=== PATIENT | female | born 1965 | race Caucasian/White ===

== ENCOUNTER 2023-11-14 08:16 | Day surgery (SDC) | payer BC ==
[~2023-11-14] VITALS: Ht 162.6 cm; Wt 86.2 kg
[2023-11-14 10:30] VITALS: O2SAT 100
[2023-11-14] MEDS ORDERED: LABETALOL 100 MG/ 20ML VIAL IVP PRN (10:45)
[2023-11-14] MEDS ORDERED: MEPERIDINE HCL/PF 25 MG/ML DISP.SYRIN IVP PRN (10:45)
[2023-11-14] MEDS ORDERED: LR 1,000 ML IV SCH (10:45)
[2023-11-14] MEDS ORDERED: hydrALAZINE HCL 20 MG/ML VIAL IVP PRN (10:45)
[2023-11-14] MEDS ORDERED: METOCLOPRAMIDE HCL 10 MG/2 ML VIAL IVP PRN (10:45)
[2023-11-14] MEDS ORDERED: HYDROmorphone 1 MG/ML INJ. CARTRIDGE IVP PRN (10:45)
[2023-11-14] MEDS ORDERED: CIPRO 0.3%/DEXAMETH 0.1% OTIC DRP 7.5 ML ONE (11:03)
[2023-11-14] MEDS ORDERED: DEXAMETHASONE SOD PHOSPHATE 4 MG/ML VIAL ONE (11:03)
[2023-11-14] MEDS ORDERED: ONDANSETRON HCL 4 MG/2 ML VIAL ONE (11:03)
[2023-11-14] MEDS ORDERED: NS IRRIG SOLN 1000 ML IR ONE (11:03)
[2023-11-14] MEDS ORDERED: fentaNYL CITRATE/PF 100 MCG/2 ML AMP ONE (11:03)
[2023-11-14] MEDS ORDERED: LIDOCAINE 2%, 20 ML MDV ONE (11:03)
[2023-11-14] MEDS ORDERED: MIDAZOLAM HCL 5 MG/ML VIAL (VERSED) IV ONE (11:03)
[2023-11-14] MEDS ORDERED: OXYMETAZOLINE HCL 0.05% NASAL SPRAY NS ONE (11:03)
[2023-11-14] MEDS ORDERED: PROPOFOL 200MG/ 20ML VIAL (DIPRIVAN) IV ONE (11:03)
[2023-11-14] MEDS ORDERED: SEVOFLURANE 15 MIN GAS INH ONE (11:03)
[2023-11-14] MEDS ORDERED: LR 1,000 ML IV.SOLN IV ONE (11:03)
[2023-11-14] MEDS: HYDROmorphone 1 MG/ML INJ. CARTRIDGE IVP PRN (11:15)
[2023-11-14] MEDS ORDERED: HYDROmorphone 1 MG/ML INJ. CARTRIDGE ONE (11:16)
[2023-11-14 14:39] VITALS: BP_SYST 140; PULSE 91; RESP 18
== END 2023-11-14 14:35 | disposition home or self-care (01) ==
LOC: SDS 08:16 → SMU 08:17 → SDS 14:35
PROVIDERS: ATTEND Otolaryngology
DX: H65.23 Chronic serous otitis media, bilateral (principal); H90.0 Conductive hearing loss, bilateral; H90.3 Sensorineural hearing loss, bilateral; H68.101 Unspecified obstruction of Eustachian tube, right ear; E66.3 Overweight; Z68.34 Body mass index [BMI] 34.0-34.9, adult
CPT/HCPCS: 69436; 82948; J1100; J2250; J2405; J2704; J3010; J1170; J7120; L8699; J2001